=== PATIENT | male | born 2000 | race Caucasian/White ===

== ENCOUNTER 2021-01-02 23:05 | Emergency (ER) | payer OTHER ==
[~2021-01-02 23:05] MED LIST: IBUPROFEN800 MG PO; PROMETHEGAN25 MG PR
[2021-01-03] MEDS ORDERED: VENTOLIN HFA 66.7 GM INH (02:30)
[2021-01-03] MEDS ORDERED: LODINE CAP 300300 MG PO (02:30)
== END 2021-01-03 02:45 | disposition home or self-care (01) ==
LOC: ER1 23:05
DX: U07.1 COVID-19 (principal); F17.290 Nicotine dependence, other tobacco product, uncomplicated
CPT/HCPCS: 71045; 87081; 87880; 93005; 99285; U0002